=== PATIENT | female | born 1950 | race Caucasian/White ===

== ENCOUNTER → 2017-08-25 08:42 | Outpatient (CLI) | payer MEDICARE, SELFPAY ==
--- NOTE | 2017-08-25 | XR_ITS ---
XR DEXA axial skeleton HISTORY: ITS.REASON: POST MENOPAUSAL ORDERING PHYSICIAN: Curtis Trevino MD PATIENT AGE: 67 years COMPARISON: None FINDINGS: The BMD measured at the Right femoral neck is .868 g/cm squared with a T score of -1.2. This is considered Osteopenic according to the World Health Organization criteria. Fracture risk is moderate. Treatment is advised. The L1-L4 density has a T score of 1.5. The density of the lumbar spine is increased by 2.4% and the density of the hips has decreased by 0.9% compared to the previous exam of 08/23/2016 IMPRESSION: Osteopenia as described above. Moderate fracture risk. Recommend follow-up exam August 2019
--- NOTE | 2017-08-25 08:45 | MM_ITS ---
MM Dig screening mamm BI w/CAD CAD Screening ORDERING PHYSICIAN : Curtis Trevino MD PATIENT AGE: 67 years GENDER: Female COMPARISON: Previous mammograms: August 2016, July 2015, June 2014, INDICATION: 67-year-old.Has been taking female hormones over past year ... Previous stereotactic biopsy right breast. No new complaints. Noncontributory family history.] TECHNIQUE: Standard CC and MLO images were obtained. R2 CAD reviewed. FINDINGS: Minimal fibroglandular elements in both breasts. It however prior films are helpful and supportive stable pattern with no dominant mass nor suspicious calcifications. RIGHT BREAST: No significant new findings 2 Metallic marker clip from previous stereotactic biopsies evident. One is at the deep medial right breast again noted.. Scant residual density here has regressed since 2013.. The other is seen at the deep superior central breast. Unchanged. LEFT BREAST:. No significant new findings . A few small calcifications in the retroareolar region appear stable if not less evident. Follow-up left mammogram 1 year adequate.. Follow-up one year recommended. Stable small constipation retroareolar region. --IMPRESSION: -------- No significant new findings. . Bilateral follow-up in one year recommended and should be encouraged. BI-RADS Category: 2 Benign Finding(s) RECOMMENDED FOLLOW-UP: 1YR - 1 YEAR FOLLOW-UP (A letter has been sent to the patient regarding results of the study.)
== END ==
PROVIDERS: Family Provider Internal Medicine Adolescent Medicine; PCP Obstetrics & Gynecology; Visit Provider Obstetrics & Gynecology
DX: Z12.31 Encounter for screening mammogram for malignant neoplasm of breast (principal); N95.1 Menopausal and female climacteric states; Z78.0 Asymptomatic menopausal state
CPT/HCPCS: 77067; 77080

== ENCOUNTER → 2017-12-29 13:26 | Outpatient (CLI) | payer MEDICARE, SELFPAY ==
--- NOTE | 2017-12-29 13:30 | MR_ITS ---
MR cervical spine wo con, MR 3-d myelogram/MRCP Ordering Physician: Raj Oneil MD Patient Age: 67 years: Female HISTORY: ITS.REASON: CERVICAL NEURALGIA Right-sided neck pain sensation. Correlate sensation symptoms past few months. Teeth pain on right past 2 days Sagittal STIR, T1, T2, axial T1 and T2. On 1.5T Siemens wide bore MRI. 3-D MR myelogram image set obtained & performed on MRI workstation. Additional sagittal thin section T2 weighted dataset obtained from this latter acquisition as well (---76 CPT) COMPARISON :No relevant studies FINDINGS the cervical vertebral bodies are intact. There is reversal of normal cervical curvature through the mid C-spine from C3-C7 with multilevel degenerative disc changes and cervical spondylosis Cranial cervical junction appears satisfactory . C2/3. Disc intact C3/4. Mild just over 2 mm degenerative anterolisthesis of C3 on C4. Degenerative disc space narrowing & bilateral facet hypertrophy contribute to the degenerative listhesis., Diffuse Disc osteophyte complex, more evident to the right with uncovertebral joint hypertrophy to the right. These features indenting the thecal sac and flattening the cervical cord more so to the right.. Resulting mild mild/moderate central canal stenosis with spinal canal measuring~ 8.5 mm at this level. Indentation upon thecal sac and right foraminal encroachment greater than left C4/5Degenerative disc space narrowing and again scant 1.5 mm-2 mm degenerative anterolisthesis of C4 on C5. But again degenerative disc space narrowing and facet hypertrophy evident and contribute to this mild listhesis. Mild diffuse disc/ osteophyte features narrow the spinal canal 8.5 mm, & yields mild/moderate central canal stenosis.. Mild disc protrusion at midline. Mild bilateral foraminal encroachment C5-C6. Again we see marked degenerative disc space narrowing and cervical spondylosis. Scant 1 mm retrolisthesis of C5 on C6. Diffuse Disc/ osteophyte features posteriorly, which narrow the spinal canal 8 mm at this area. With slight flattening the cervical cord. & central canal stenosis.. Bilateral foraminal encroachment most evident to the right C6/7: Again with marked degenerative disc space narrowing. Mild diffuse posterior hypertrophic ridging slightly more evident to the right. Features slightly indents the anterior thecal sac and yield moderate bilateral foraminal encroachment. A prominent ligamentum flavum and posterior elements indents the posterior left aspect of the thecal sac at this level C7/T1. Disc intact. Cord normal. T1-T2 disc intact cord normal. T2/T3 disc intact. A scant 1 mm anterolisthesis T2 on T3. T 3/4 disc unremarkable. Cord normal 3-D MR myelogram image demonstrates a multilevel spinal stenosis which begins at C3/4 imaging continues through C4/5, C5-C6 and diminishes at C6/7. ------ IMPRESSION Pronounced multilevel cervical spondylosis- With long segment Multilevel cervical spinal stenosis from C3/4 through C6/7.... Spinal stenosis at each interval level . Multilevel prominent degenerative disc changes, along with facet hypertrophy, with degenerative listhesis at several levels contribute C5/C6 & C6/7: Mild/moderate Spinal stenosis, with right foraminal encroachment > left at C5/6 and C6/7 C3/4 and C4/5: Degenerative anterolisthesis at C3/4 & C4/5, along with disc/osteophyte features,. These yield mild spinal stenosis these levels & right foraminal encroachment at C3/4 Reversal of normal cervical curvature.
== END ==
PROVIDERS: Family Provider Internal Medicine Adolescent Medicine; PCP Obstetrics & Gynecology; Visit Provider Internal Medicine Adolescent Medicine
DX: M54.12 Radiculopathy, cervical region (principal)
CPT/HCPCS: 72141; 76376

== ENCOUNTER → 2018-04-21 10:00 | Outpatient (CLI) | payer MEDICARE, SELFPAY ==
--- NOTE | 2018-04-21 10:03 | MR_ITS ---
MR lumbar spine wo con, MR 3-d myelogram/MRCP HISTORY: Low back pain with right leg pain and numbness and tingling ITS.REASON: LOW BACK PAIN ORDERING PHYSICIAN: Oscar Rivas PATIENT AGE: 67 years Comparison: None TECHNIQUE: Standard multiplanar multiecho sequences are performed without contrast. 3-D MIP and myelographic images are also rendered and reviewed FINDINGS: There is a transitional segment at the lumbosacral junction which is labeled as S1. Please correlate with lateral radiographs if any intervention is contemplated. The spinal cord ends at the L1-L2 level. L1-L2: Mild degenerative disc disease with minimal bulging disc and mild facet ligamentous hypertrophy with mild bilateral lateral recess and foraminal narrowing. L2-L3: Mild facet and ligamentum flavum hypertrophy. L3-L4: Mild bulging disc along with facet and ligamentum flavum hypertrophy with moderate bilateral lateral recess and foraminal narrowing greater on the left. L4-L5: There is mild anterior subluxation of L4 on L5 of 4 mm with bulging disc along with facet and ligamentum flavum hypertrophy with resultant canal stenosis and moderate bilateral foraminal narrowing greater on the left. Canal stenosis is moderate to severe with the canal measuring 8 mm in the AP plane. L5-S1: Degenerative disc disease with bulging disc along with facet and ligamentum flavum hypertrophy with moderate bilateral lateral recess narrowing and moderate to severe bilateral foraminal narrowing. There are type II endplate changes at this level IMPRESSION: 1. Transitional segment at the lumbosacral junction. This is labeled as S1 . Please correlate with radiographs if any intervention is contemplated 2. Multilevel degenerative disc disease along with facet and ligamentum flavum hypertrophy with bulging discs. Please see above for detailed description at each level 3. L4-L5: There is mild anterior subluxation of L4 on L5 of 4 mm with bulging disc along with facet and ligamentum flavum hypertrophy with resultant canal stenosis and moderate bilateral foraminal narrowing greater on the left. Canal stenosis is moderate to severe with the canal measuring 8 mm in the AP plane. 4. L5-S1: Degenerative disc disease with bulging disc along with facet and ligamentum flavum hypertrophy with moderate bilateral lateral recess narrowing and moderate to severe bilateral foraminal narrowing. There are type II endplate changes at this level
== END ==
PROVIDERS: Family Provider Internal Medicine Adolescent Medicine; PCP Obstetrics & Gynecology; Visit Provider Neurological Surgery
DX: M54.5 Low back pain (principal)
CPT/HCPCS: 72148; 76376

== ENCOUNTER → 2018-10-18 10:27 | Outpatient (CLI) | payer MEDICARE, SELFPAY ==
--- NOTE | 2018-10-18 10:32 | MM_ITS ---
MM Dig screening mamm BI w/CAD CAD Screening COMPARISON: Digital mammograms with CAD and rosas 08/23/2016 08/25/2017 INDICATION: There is no personal or family history of breast cancer TECHNIQUE: Standard CC and MLO images were obtained. R2 CAD reviewed. FINDINGS: Moderate diffuse fibro glandular densities are seen throughout both breasts. There are couple of tiny stable benign-appearing nodular densities right breast. There are benign-appearing calcifications right breast. There is no suspicious lesion and there are no suspicious microcalcifications. IMPRESSION: Fibrofatty parenchyma no suspicious lesion seen BI-RADS Category: 2 Benign Finding(s) RECOMMENDED FOLLOW-UP: 1YR - 1 YEAR FOLLOW-UP (A letter has been sent to the patient regarding results of the study.)
--- NOTE | 2018-10-18 10:32 | XR_ITS ---
XR DEXA axial skeleton HISTORY: ITS.REASON: screening ORDERING PHYSICIAN: Curtis Trevino MD PATIENT AGE: 68 years COMPARISON: 08/25/2017 FINDINGS: The BMD measured at the right femoral neck is 0.896 g/cm squared with a T score of -1.0. This is considered normal according to the World Health Organization criteria. Fracture risk is low. The L1 L4 density has a T score of 1.5 unchanged. The remaining hip density has increased by 2%.. IMPRESSION: Normal bone density with low fracture risk. Suggest follow-up exam October 2020
== END ==
PROVIDERS: PCP Internal Medicine Adolescent Medicine; Visit Provider Obstetrics & Gynecology
DX: Z12.31 Encounter for screening mammogram for malignant neoplasm of breast (principal); Z78.0 Asymptomatic menopausal state
CPT/HCPCS: 77067; 77080

== ENCOUNTER → 2019-11-13 09:37 | Outpatient (CLI) | payer MEDICARE, SELFPAY ==
--- NOTE | 2019-11-13 09:45 | MM_ITS ---
PROCEDURE: MM DIG SCREENING MAMM BI W/CAD Digital Breast Tomosynthesis Included CLINICAL INDICATION: SCREENING There is no personal or family history of breast cancer. Patient is currently on estrogen. There has been a previous biopsy right breast for benign disease. COMPARISON: [facility] DIG MAMM-SCREEN NICOLE W/CAD from 08/23/2016 [facility] MM Dig screening mamm BI w/CAD from 08/25/2017 [facility] MM Dig screening mamm BI w/CAD from 10/18/2018 TECHNIQUE: Standard CC and MLO images and 3D Tomosynthesis was obtained. R2 CAD reviewed. FINDINGS: Mild to moderate diffuse fibroglandular densities are seen in both breasts. There are 2 biopsy clips right breast. There is a stable small nodular benign-appearing density upper inner quadrant right breast. There is no suspicious lesion and no suspicious microcalcifications. IMPRESSION: Fibrofatty parenchyma with no suspicious lesions seen BI-RAD Category: 2 Benign Finding(s) FOLLOW-UP: 1YR 1 Year Follow-up (A letter has been sent to the patient regarding results of the study.) Dictated by: Dr. Homar Archer MD 11/14/2019 17:[address] Homar Archer MD in [place] 11/14/2019 17:45
== END ==
PROVIDERS: PCP Internal Medicine Adolescent Medicine; Visit Provider Internal Medicine Adolescent Medicine
DX: Z12.31 Encounter for screening mammogram for malignant neoplasm of breast (principal)
CPT/HCPCS: 77063; 77067

== ENCOUNTER → 2020-10-02 11:28 | Outpatient (CLI) | payer MEDICARE, SELFPAY ==
[2020-10-02 12:00] LABS: Basophils % 0.9 % (0.1-2.0); Eosinophils # 0.1 K/mm3 (0.0-0.4); Eosinophils % 1.8 % (0.1-12.0); Hemoglobin 12.7 g/dL (12.2-16.2); Lymphocytes # 1.6 K/mm3 (0.7-4.5); Lymphocytes % 32.2 % (10-50); Mean Corpuscular HGB Conc 33.4 g/dL (31.8-35.4); Mean Corpuscular Volume 89.9 fl (81-99); Mean Platelet Volume 8.3 fl (7.4-10.4); Monocytes # 0.4 K/mm3 (0.1-1.0); Monocytes % 8.1 % (1.7-9.3); Neutrophils # 2.9 K/mm3 (1.8-7.8); Neutrophils % 57.1 % (37.0-80.0); Platelet Count 234 K/mm3 (142-424); Red Blood Count 4.23 M/mm3 (4.20-5.40); Red Cell Distribution Width 13.3 % (11.5-17.5)
[2020-10-02 13:17] LABS: Chloride 102 mmol/L (98-107)
[2020-10-02 13:18] LABS: Potassium 4.6 mmoL/L (3.5-5.1); Sodium 138 mmol/L (136-145)
[2020-10-02 13:20] LABS: Alanine Aminotransferase 22 U/L (12-78); Alkaline Phosphatase 79 U/L (38-126); Anion Gap 11.6 mEq/L (5-15); Aspartate Amino Transferase 36 U/L (14-36); Bilirubin,Total 0.8 mg/dl (0.2-1.3); Blood Urea Nitrogen 24 mg/dl (7-17); Carbon Dioxide 29 mmol/L (22.0-30.0); Estimated Glomerular Filt Rate 40 ml/min (>60); GFR (African American) 49 ML/MIN (>60)
[2020-10-02 13:21] LABS: Albumin Level 4.5 g/dl (3.5-5.0); Albumin/Globulin Ratio 1.7 (1.1-1.8); Calcium 10.4 mg/dl (8.4-10.2); Chol/HDL Ratio 2.1 (1-3.5); Cholesterol 177 mg/dl (140-200); Globulin 2.7 g/dL (1.3-3.2); Glucose 105 mg/dl (74-100); HDL Cholesterol 85 mg/dl (40-60); Magnesium 1.7 mg/dl (1.6-2.3); Total Protein,Serum 7.2 g/dl (6.3-8.2); Triglycerides 110 mg/dl (30-150); VLDL Cholesterol 22 mg/dL (0-40)
[2020-10-02 13:32] LABS: Direct LDL Cholesterol 62.46 mg/dL (100-129)
[2020-10-02 13:37] LABS: Free Thyroxine Index 3.2 ug/dL (5.93-13.13); T4 (Thyroxine) 11.9 ug/dl (5.53-11.0); Triiodothryronine (T3) Uptake 27 % (23.5-40.5)
[2020-10-02 13:42] LABS: 25-OH Vitamin D, Total 23.5 ng/mL (30-100)
[2020-10-02 13:51] LABS: Thyroid Stimulating Hormone 2.42 uIU/mL (0.465-4.68)
== END ==
PROVIDERS: Visit Provider Internal Medicine Adolescent Medicine
DX: R00.2 Palpitations (principal); E53.8 Deficiency of other specified B group vitamins; E55.9 Vitamin D deficiency, unspecified; E78.5 Hyperlipidemia, unspecified
CPT/HCPCS: 36415; 80053; 80061; 82306; 83735; 84436; 84443; 84479; 85025

== ENCOUNTER → 2020-10-08 09:31 | Outpatient (CLI) | payer MEDICARE, SELFPAY ==
--- NOTE | 2020-10-08 09:33 | XR_ITS ---
PROCEDURE: XR DEXA AXIAL SKELETON CLINICAL HISTORY: GENERALIZED OSTEOARTHRITIS OF MULTIPLE SITES COMPARISON: CR DEXAAX XR DEXA axial skeleton from 10/18/2018 FINDINGS: The right hip BMD is 0.838 grams/centimeter square with a T-score of -1.1. The left hip BMD is 0.829 grams/centimeters squared with a T-score of -0.9. The lumbar spine BMD is 1.164 grams/cm2 with a T-score of 1.1. IMPRESSION: This patient is considered osteopenic according to the World Health Organization criteria. Bone density is between 10 and 25 percent below young normal. Fracture risk is moderate. Treatment is advised. Based on these results a follow-up exam is recommended in 2 year. Dictated by: Danna Quevedo 10/08/2020 15:01 Danna Quevedo in [place] 10/08/2020 15:01
== END ==
PROVIDERS: PCP Internal Medicine Adolescent Medicine; Visit Provider Internal Medicine Adolescent Medicine
DX: M85.89 Other specified disorders of bone density and structure, multiple sites (principal); I48.92 Unspecified atrial flutter
CPT/HCPCS: 77080; 93225; 93226

== ENCOUNTER 2020-11-24 16:17 | Emergency (ER) | payer MEDICARE, SELFPAY ==
[2020-11-24 16:25] VITALS: PULSE 70; RESP 16; TEMP 36.9; O2SAT 100; BMI 30.9
[2020-11-24 16:42] VITALS: BP 186/79; PULSE 68; RESP 18; TEMP 36.6; O2SAT 100; BMI 30.7
--- NOTE | 2020-11-24 16:48 | XR_ITS ---
PROCEDURE INFORMATION: Exam: XR Thoracic Spine Exam date and time: 11/24/2020 4:48 PM Age: 70 years old Clinical indication: Injury or trauma; Fall; Blunt trauma (contusions or hematomas) TECHNIQUE: Imaging protocol: XR of the thoracic spine. Views: 2 views. COMPARISON: No relevant prior studies available. FINDINGS: Bones/joints: Levoscoliosis of the thoracolumbar junction region. T11-12 degenerative disc space narrowing and osteophyte formation. No acute fracture. Soft tissues: Unremarkable. Intraperitoneal space: Cholecystectomy clips within the right upper abdomen. IMPRESSION: No acute fracture.
--- NOTE | 2020-11-24 16:48 | XR_ITS ---
PROCEDURE INFORMATION: Exam: XR Right Shoulder Exam date and time: 11/24/2020 4:48 PM Age: 70 years old Clinical indication: Injury or trauma; Fall; Blunt trauma (contusions or hematomas); Shoulder; Right TECHNIQUE: Imaging protocol: XR Right shoulder. Views: 2 or more views. COMPARISON: No relevant prior studies available. FINDINGS: Bones/joints: Normal. Soft tissues: Normal. IMPRESSION: No acute findings.
--- NOTE | 2020-11-24 16:48 | XR_ITS ---
PROCEDURE INFORMATION: Exam: XR Cervical Spine Exam date and time: 11/24/2020 4:48 PM Age: 70 years old Clinical indication: Injury or trauma; Fall; Blunt trauma TECHNIQUE: Imaging protocol: XR of the cervical spine. Views: 2 or 3 views. COMPARISON: [facility] MR cervical spine wo con 12/29/2017 1:44 PM FINDINGS: Bones/joints: Grade 1 degenerative anterolisthesis of C3 on C4. Grade 1 degenerative retrolisthesis of C5 on C6 and C6 on C7. Moderate degenerative disc disease at the C4-C5 through C6-C7 levels, manifest by disc space narrowing and osteophyte formation. Moderate bilateral facet arthropathy and uncovertebral arthropathy from C3-C4 through C6-C7 levels. No acute fracture. Soft tissues: Unremarkable. IMPRESSION: 1. No acute fracture. 2. Multilevel cervical spine spondylosis as described above.
--- NOTE | 2020-11-24 17:34 | HMH.EDUTC ---
[facility] [place] Impression: Shoulder separation Fall Qualifiers: Encounter type: initial encounter Qualified Code(s): W19.XXXA - Unspecified fall, initial encounter Right shoulder pain Qualifiers: Chronicity: acute Qualified Code(s): M25.511 - Pain in right shoulder Disposition: Home, Self-Care Condition on Discharge: Good Instructions: Shoulder Sprain, DI for AC Joint Separation, AC Joint Separation Additional Instructions: Rest the extremity, apply ice for 15 minutes as tolerated three or four times per day, Elevate the extremity as tolerated while you are resting. Take ibuprofen for pain. I sent in a prescription to your pharmacy. Follow up with Dr. Parker (orthopedics). Sometimes there can be fractures that don't show up well on the first set of x-rays. So, you should follow up if you continue to have symptoms. I put in a referral but you need to call her office and schedule an appointment. Follow up with your regular doctor. GO TO THE ER FOR ANY WORSENING SYMPTOMS Prescriptions: Ibuprofen [Ibuprofen 600mg Tablet] 600 mg PO Q6HP PRN #30 tab PRN Reason: Mild Pain Transmission Status: Received by [facility] Cyclobenzaprine HCl [Flexeril 10mg tablet] 10 mg PO BIDP PRN 30 Days #90 tab PRN Reason: Muscle Spasm Transmission Status: Received by [facility] Referrals: Raj Oneil MD [Primary Care Provider] - Stacie Parker MD [Physician] - Time of Disposition: 17:57 Medical Decision Making - Medical Records Medical records reviewed: No: I reviewed the patient's medical records. - Dayday Inquiry Pt receiving controlled substance: No Vital Signs: 11/24/20 16:25 11/24/20 16:42 11/24/20 18:07 Temperature 98.4 F 97.9 F 98.3 F Temperature Source Oral Tympanic Pulse Rate 72 Pulse Rate [Right] 70 68 Respiratory Rate 16 18 16 Blood Pressure 172/81 H Blood Pressure [Right Arm] 186/79 H Blood Pressure Mean [Right Arm] 114 02 Sat by Pulse Oximetry 100 100 Oxygen Delivery Method Room Air Room Air Orders (Tests/Meds): ED MEDICATIONS Discontinued Medications Generic Name Dose Route Start Last Admin Trade Name Freq PRN Reason Stop Dose Admin Ketorolac Tromethamine 60 mg 11/24/20 17:34 11/24/20 17:42 Ketorolac 60mg/2ml Vial IM 11/24/20 17:35 60 mg ONCE ONE Administration - Radiology Data #1 Image(s): Shoulder Image Reviewed: Yes I reviewed the patient's radiology image, Yes I have reviewed radiologist's interpretation Preliminary Findings: No Fracture Seen PROCEDURE INFORMATION: Exam: XR Right Shoulder Exam date and time: 11/24/2020 4:48 PM Age: 70 years old Clinical indication: Injury or trauma; Fall; Blunt trauma (contusions or hematomas); Shoulder; Right TECHNIQUE: Imaging protocol: XR Right shoulder. Views: 2 or more views. COMPARISON: No relevant prior studies available. FINDINGS: Bones/joints: Normal. Soft tissues: Normal. IMPRESSION: No acute findings. #2 Image(s): C-Spine Image Reviewed: Yes I reviewed the patient's radiology image, Yes I have reviewed radiologist's interpretation Preliminary Findings: Abnormal, No Fracture Seen PROCEDURE INFORMATION: Exam: XR Cervical Spine Exam date and time: 11/24/2020 4:48 PM Age: 70 years old Clinical indication: Injury or trauma; Fall; Blunt trauma TECHNIQUE: Imaging protocol: XR of the cervical spine. Views: 2 or 3 views. COMPARISON: [facility] MR cervical spine wo con 12/29/2017 1:44 PM FINDINGS: Bones/joints: Grade 1 degenerative anterolisthesis of C3 on C4. Grade 1 degenerative retrolisthesis of C5 on C6 and C6 on C7. Moderate degenerative disc disease at the C4-C5 through C6-C7 levels, manifest by disc space narrowing and osteophyte formation. Moderate bilateral facet arthropathy and uncovertebral arthropathy from C3-C4 through C6-C7 l
[2020-11-24 18:07] VITALS: BP 172/81; PULSE 72; RESP 16; TEMP 36.8
--- NOTE | 2020-11-24 18:10 | PC.NURSE ---
pulled before the order was in. [id number] L DELTOID
== END 2020-11-24 18:07 | disposition home or self-care (01) ==
LOC: ER 16:26 → UTC 16:28
PROVIDERS: Emergency Provider Nurse Practitioner Family; PCP Internal Medicine Adolescent Medicine
DX: S43.001A Unspecified subluxation of right shoulder joint, initial encounter (principal); W17.89XA Other fall from one level to another, initial encounter; Y92.019 Unspecified place in single-family (private) house as the place of occurrence of the external cause; I10 Essential (primary) hypertension; K21.9 Gastro-esophageal reflux disease without esophagitis; E78.5 Hyperlipidemia, unspecified; M85.89 Other specified disorders of bone density and structure, multiple sites
CPT/HCPCS: G0463; 72040; 72070; 73030; 99202

== ENCOUNTER → 2021-01-27 10:11 | Outpatient (CLI) | payer MEDICARE, SELFPAY ==
--- NOTE | 2021-01-27 10:13 | MM_ITS ---
PROCEDURE: MM DIG SCREENING MAMM BI W/CAD Digital Breast Tomosynthesis Included CLINICAL INDICATION: SCREENING There is no personal or family history of breast cancer. Patient currently is on estrogen. COMPARISON: MG [facility] MM Dig screening mamm BI w/CAD from 08/25/2017 MG [facility] MM Dig screening mamm BI w/CAD from 10/18/2018 MG MM DIG SCREENING MAMM BI W/CAD from 11/13/2019 TECHNIQUE: Standard CC and MLO images and 3D Tomosynthesis was obtained. R2 CAD reviewed. FINDINGS: Moderate scattered fibroglandular densities are seen throughout both breasts and findings are bilateral symmetrical. There is a biopsy clip right breast. There are couple of benign-appearing microcalcifications in each breast. There is no suspicious lesion and no suspicious microcalcifications. IMPRESSION: Fibrofatty parenchyma with no suspicious lesions seen BI-RAD Category: 2 Benign Finding(s) FOLLOW-UP: 1YR 1 Year Follow-up (A letter has been sent to the patient regarding results of the study.) Dictated by: Dr. Homar Archer MD 01/28/2021 10:08 Dr. Homar Archer MD in [place] 01/28/2021 10:08
== END ==
PROVIDERS: PCP Internal Medicine Adolescent Medicine; Visit Provider Internal Medicine Adolescent Medicine
DX: Z12.31 Encounter for screening mammogram for malignant neoplasm of breast (principal)
CPT/HCPCS: 77063; 77067

== ENCOUNTER → 2021-03-18 11:05 | Outpatient (CLI) | payer MEDICARE, SELFPAY ==
[2021-03-18 12:35] LABS: Alanine Aminotransferase 20 U/L (12-78); Albumin Level 4.3 g/dl (3.5-5.0); Albumin/Globulin Ratio 1.5 (1.1-1.8); Alkaline Phosphatase 67 U/L (38-126); Anion Gap 14.6 mEq/L (5-15); Aspartate Amino Transferase 31 U/L (14-36); Bilirubin,Total 0.6 mg/dl (0.2-1.3); Blood Urea Nitrogen 19 mg/dl (7-17); Carbon Dioxide 29 mmol/L (22.0-30.0); Chloride 100 mmol/L (98-107); Estimated Glomerular Filt Rate 40 ml/min (>60); GFR (African American) 49 ML/MIN (>60); Globulin 2.9 g/dL (1.3-3.2); Glucose 104 mg/dl (74-100); Potassium 4.6 mmoL/L (3.5-5.1); Sodium 139 mmol/L (136-145); Total Protein,Serum 7.2 g/dl (6.3-8.2)
[2021-03-18 12:51] LABS: T4 (Thyroxine) 11.6 ug/dl (5.53-11.0); Triiodothryronine (T3) Uptake 26 % (23.5-40.5)
[2021-03-18 13:05] LABS: Thyroid Stimulating Hormone 2.09 uIU/mL (0.465-4.68)
== END ==
PROVIDERS: Visit Provider Internal Medicine Adolescent Medicine
DX: E05.90 Thyrotoxicosis, unspecified without thyrotoxic crisis or storm (principal); I10 Essential (primary) hypertension
CPT/HCPCS: 36415; 80053; 84436; 84443; 84479

== ENCOUNTER → 2022-03-29 10:48 | Outpatient (CLI) | payer MEDICARE, SELFPAY ==
--- NOTE | 2022-03-29 10:52 | MM_ITS ---
PROCEDURE INFORMATION: Exam: MG Bilateral Screening 3D Mammography Exam date and time: 03/29/2022 10:46 AM Age: 71 years old Clinical indication: Screening examination. History of benign right biopsies. No family history of breast cancer. TECHNIQUE: Imaging protocol: Bilateral Screening tomosynthesis and 2D mammography including computer-aided detection (CAD) when performed. COMPARISON: 1. MG MM DIG SCREENING MAMM BI W/CAD 01/27/2021 10:16 AM 2. MG MM DIG SCREENING MAMM BI W/CAD 11/13/2019 9:50 AM 3. MG [facility] MM Dig screening mamm BI w/CAD 10/18/2018 10:53 AM 4. MG [facility] MM Dig screening mamm BI w/CAD 08/25/2017 8:55 AM FINDINGS: MAMMOGRAPHY: Breast composition: There are scattered areas of fibroglandular density. Mass: No suspicious mass. Architectural distortion: None. Calcifications: No suspicious calcifications. Asymmetric density: None. Skin thickening: None. Axillary adenopathy: None. Other findings: 2 right biopsy clips.Assessment: BI-RADS Category 2: Benign IMPRESSION: No mammographic evidence of malignancy. Annual screening is recommended unless otherwise clinically indicated. ASSESSMENT: BI-RADS Category 1: Negative
== END ==
PROVIDERS: PCP Internal Medicine Adolescent Medicine; Visit Provider Internal Medicine Adolescent Medicine
DX: Z12.31 Encounter for screening mammogram for malignant neoplasm of breast (principal)
CPT/HCPCS: 77063; 77067

== ENCOUNTER 2022-07-09 14:28 | Emergency (ER) | payer MEDICARE, SELFPAY ==
[2022-07-09 14:28] VITALS: BP 192/95; PULSE 76; RESP 18; TEMP 36.7; O2SAT 96; BMI 30.5
[2022-07-09 14:37] VITALS: BMI 30.5
--- NOTE | 2022-07-09 14:37 | PC.NURSE ---
PT TO CT
--- NOTE | 2022-07-09 14:38 | CT_ITS ---
FINAL REPORT CLINICAL HISTORY: SLURRED SPEECH STROKE PROTOCOL FINDINGS: Axial images of the head were obtained without contrast. Coronal reformatted images were also obtained. This study was performed with techniques to keep radiation doses as low as reasonably achievable (ALARA). Individualized dose reduction techniques using automated exposure control or adjustment of mA and/or kV according to the patient's size were employed. There is generalized age-appropriate atrophy. Periventricular low-attenuation areas are seen consistent with mild chronic ischemic changes. There is no evidence of intracranial hemorrhage or mass. There is no evidence of acute infarct. There is no evidence of shift of the midline structures. No skull abnormality is seen on the bone window images. IMPRESSION: Atrophy and mild periventricular chronic ischemic changes. No acute intracranial abnormality identified. Reviewed, Interpreted and Dictated by Fernandez Drew III, MD Transcribed by Saritha Mccrary Authenticated and [facility]
[2022-07-09 14:40] LABS: POC Glucose,Bedside 119 (70-110)
--- NOTE | 2022-07-09 14:45 | PC.NURSE ---
PT RETURNED FROM CT
[2022-07-09 15:00] LABS: Chloride 104 mmol/L (98-107); Potassium 3.9 mmoL/L (3.5-5.1); Sodium 140 mmol/L (136-145)
[2022-07-09 15:02] LABS: Alanine Aminotransferase 22 U/L (12-78); Aspartate Amino Transferase 34 U/L (14-36); Blood Urea Nitrogen 20 mg/dl (7-17); Creatinine Clearance Estimated 51 mL/min (50-200); Estimated Glomerular Filt Rate 37 ml/min (>60); GFR (African American) 45 ML/MIN (>60)
[2022-07-09 15:03] LABS: Albumin Level 4.4 g/dl (3.5-5.0); Albumin/Globulin Ratio 1.8 (1.1-1.8); Alkaline Phosphatase 57 U/L (38-126); Anion Gap 12.9 mEq/L (5-15); Bilirubin,Total 0.6 mg/dl (0.2-1.3); Calcium 9.3 mg/dl (8.4-10.2); Carbon Dioxide 27 mmol/L (22.0-30.0); Globulin 2.5 g/dL (1.3-3.2); Glucose 127 mg/dl (74-100); Total Protein,Serum 6.9 g/dl (6.3-8.2)
[2022-07-09 15:17] LABS: Troponin I < 0.01 ng/ml (0.00-0.034)
--- NOTE | 2022-07-09 15:45 | HMH.EDGENADL ---
Discharge Plan Disposition Patient Disposition: Home, Self-Care Condition: Good Prescriptions Prescriptions: No Action calcium carbonate 600 mg calcium (1,500 mg) tablet 600 mg PO BID pantoprazole 40 mg tablet,delayed release (DR/EC) 40 mg PO DAILY simvastatin 10 mg tablet 10 mg PO QHS naproxen sodium [Aleve] 220 mg capsule 220 mg PO BID PRN cyanocobalamin (vitamin B-12) [B-12 DOTS] 500 mcg tablet 1,000 mcg PO DAILY xbpz-ajggow-qhncrxwt-D3-C-Mn 500-400-667 mg-mg-unit capsule 1 cap PO BID losartan-hydrochlorothiazide [Hyzaar] 100-25 mg tablet 1 tab PO DAILY Bystolic 5 mg tablet 5 mg PO DAILY potassium chloride 20 mEq tablet extended release 20 meq PO BID celecoxib [Celebrex] 200 mg capsule 200 mg PO BID estradiol 1 mg tablet 1 mg PO DAILY Qty: 90 1RF Rx Instructions: needs an appt. by the end of Jun cyclobenzaprine 10 MG tablet 10 mg PO BIDP PRN (Reason: Muscle Spasm) 30 Days Qty: 90 0RF ibuprofen 600 MG tablet 600 mg PO Q6HP PRN (Reason: Mild Pain) Qty: 30 0RF Activity Restrictions/Add. Instructions Additional Instructions/Restrictions: Follow-up with your family doctor regarding this visit to the emergency department as soon as you are able to establish care and ensure improvement in symptoms. If you have any other concerning signs or symptoms, return to the ED for further evaluation, or your primary care provider. Make sure to drink plenty of water and stay as hydrated as possible. Clinical Impressions Clinical Impression: Dehydration, Disorientation Discharge ED Provider: Natan Ch General Adult HPI General Chief complaint: Neuro Symptoms/Deficit Stated complaint: STROKE LIKE SYMPTOMS Time Seen by Provider: 07/09/22 15:06 Mode of Arrival: Ambulatory Limitations: No Limitations Description of Symptoms (Recalled from ER Triage Doc. by RN): FAMILY REPORTS PT WAS IN BED LONGER THAN NORMAL. PT WAS DISORIENTED, DOING TASKS ODDLY AND SLURRED SPEECH. LAST KNOWN NORMAL ABOUT 1000 History of Present Illness HPI narrative: This is a 72-year-old female with history of hypertension, hyperlipidemia, tachycardia who is presenting with altered mental status, generalized fatigue. This is been going on for the past 2 days, worse today. Usually patient is up and ready to go for the day around 8 AM, patient slept until around noon today. Has been confused intermittently and having memory lapses, which family and patient both state or normal for her. Patient denies falls, weakness on one side of her body or the other, facial droop, but patient's family states that when she was confused today on 07/09, she also seemed to have some slurred speech. This has since resolved. Patient denies fevers, chills, nausea, vomiting, chest pain, shortness of breath, abdominal pain, upper extremity symptoms, lower extremity symptoms, dysuria, hematuria, frequency, recent travel, or any other concerning recent history. Related Data Home Medications Medication Instructions Recorded Confirmed calcium carbonate 600 mg calcium 600 mg PO BID 06/26/18 06/26/18 (1,500 mg) tablet celecoxib 200 mg capsule (Celebrex) 200 mg PO BID 06/26/18 06/26/18 cyanocobalamin (vitamin B-12) 500 1,000 mcg PO DAILY 06/26/18 06/26/18 mcg tablet (B-12 DOTS) glucosamine 500 1 cap PO BID 06/26/18 06/26/18 bk-lpzifeyhb-uqbmwnbr comp 400 mg-D3 667 unit-C-Mn cap losartan 100 1 tab PO DAILY 06/26/18 06/26/18 mg-hydrochlorothiazide 25 mg tablet (Hyzaar) naproxen sodium 220 mg capsule 220 mg PO BID PRN 06/26/18 06/26/18 (Aleve) nebivolol 5 mg tablet (Bystolic) 5 mg PO DAILY 06/26/18 06/26/18 pantoprazole 40 mg tablet,delayed 40 mg PO DAILY 06/26/18 06/26/18 release potassium chloride 20 mEq 20 meq PO BID 06/26/18 06/26/18 tablet,extended release simvastatin 10 mg tablet 10 mg PO QHS 06/26/18 06/26/18 Previous Rx's Medication Instructions Recorded estr
--- NOTE | 2022-07-09 15:47 | XR_ITS ---
PROCEDURE INFORMATION: Exam: XR Chest Exam date and time: 07/09/2022 4:10 PM Age: 72 years old Clinical indication: Other: AMS; Additional info: AMS, weakness TECHNIQUE: Imaging protocol: Radiologic exam of the chest. Views: 1 view. COMPARISON: CR XR THORACIC SPINE 2V 11/24/2020 4:57 PM FINDINGS: Lungs: Unremarkable. No consolidation. Pleural spaces: Unremarkable. No pleural effusion. No pneumothorax. Heart/Mediastinum: Unremarkable. No cardiomegaly. Bones/joints: Unremarkable. IMPRESSION: No acute findings.
[2022-07-09 16:43] LABS: Microscopic, Urine URINE MICROSCOPIC (MICROSCOPIC)
[2022-07-09 16:45] LABS: Appearance,Urine CLEAR (Clear); Bilirubin,Urine Negative (Negative); Blood, Urine TRACE-I (Negative); Color,Urine YELLOW (Yellow); Glucose,Urine (UA) Negative (Negative); Ketones,Urine Negative (Negative); Leukocyte Esterase,Urine TRACE (Negative); Nitrate,Urine Negative (Negative); PH,Urine 5.5 (5.0-8.5); Protein,Urine Negative (Negative); Specific Gravity, Urine 1.015 (1.005-1.030); Urobilinogen,Urine 0.2 EU/dl (0.2)
[2022-07-09 17:10] LABS: RBC,Urine Occasional #/hpf (0-3); WBC,Urine Occasional #/hpf (0-3)
--- NOTE | 2022-07-09 17:20 | PC.NURSE ---
PT ASSISTED TO BR
--- NOTE | 2022-07-09 17:24 | PC.NURSE ---
PT UPDATED ON POC AT THIS TIME. NO NEEDS VOICED
[2022-07-09 18:06] LABS: Basophils # 0.1 K/mm3 (0-0.2); Basophils % 1.3 % (0.1-2.0); Eosinophils # 0.1 K/mm3 (0.0-0.4); Eosinophils % 1.6 % (0.1-12.0); Hematocrit 38.7 % (37.0-47.0); Hemoglobin 12.9 g/dL (12.2-16.2); Lymphocytes # 2.1 K/mm3 (0.7-4.5); Lymphocytes % 37.1 % (10-50); Mean Corpuscular HGB Conc 33.4 g/dL (31.8-35.4); Mean Corpuscular Volume 92.6 fl (81-99); Mean Platelet Volume 10.5 fl (7.4-10.4); Monocytes # 0.5 K/mm3 (0.1-1.0); Monocytes % 9.1 % (1.7-9.3); Neutrophils # 2.9 K/mm3 (1.8-7.8); Neutrophils % 50.9 % (37.0-80.0); Platelet Count 255 K/mm3 (142-424); Red Blood Count 4.18 M/mm3 (4.20-5.40); Red Cell Distribution Width 13.3 % (11.5-17.5); White Blood Count 5.6 K/mm3 (4.8-10.8)
[2022-07-09 19:00] VITALS: BP 173/80; PULSE 80; RESP 18; TEMP 36.8; O2SAT 98
[2022-07-09 19:24] LABS: Troponin I < 0.01 ng/ml (0.00-0.034)
== END 2022-07-09 19:00 | disposition home or self-care (01) ==
PROVIDERS: Emergency Provider Emergency Medicine; PCP Internal Medicine Adolescent Medicine
DX: R41.82 Altered mental status, unspecified (principal); E86.0 Dehydration; R47.81 Slurred speech; I10 Essential (primary) hypertension; E78.5 Hyperlipidemia, unspecified; R00.0 Tachycardia, unspecified; R53.83 Other fatigue
CPT/HCPCS: 36415; 70450; 71045; 80053; 81001; 82962; 84484; 85025; 96360; 99285

== ENCOUNTER → 2023-05-16 07:54 | Outpatient (CLI) | payer MEDICARE, SELFPAY ==
--- NOTE | 2023-05-16 07:58 | MM_ITS ---
PROCEDURE INFORMATION: Exam: MG Bilateral Screening 3D Mammography Exam date and time: 05/16/2023 7:55 AM Age: 72 years old Clinical indication: Screening mammogram. No personal or family history of breast cancer TECHNIQUE: Imaging protocol: Bilateral Screening tomosynthesis and 2D mammography including computer-aided detection (CAD) when performed. COMPARISON: 1. MG MM DIG SCREENING MAMM BI W/CAD 03/29/2022 10:46 AM 2. MG MM DIG SCREENING MAMM BI W/CAD 01/27/2021 10:16 AM 3. MG MM DIG SCREENING MAMM BI W/CAD 11/13/2019 9:50 AM 4. MG SCBI MM Dig screening mamm BI w/CAD 10/18/2018 10:53 AM FINDINGS: MAMMOGRAPHY: Breast composition: There are scattered areas of fibroglandular density. Mass: None. Architectural distortion: No new or suspicious architectural distortion. Calcifications: No new or suspicious calcifications are present Asymmetric density: No new or suspicious asymmetric density is present Skin thickening: None. Axillary adenopathy: None. IMPRESSION: No mammographic evidence of malignancy. Recommend annual screening mammography unless otherwise clinically indicated. ASSESSMENT: BI-RADS category 1: Negative
== END ==
PROVIDERS: PCP Internal Medicine Adolescent Medicine; Visit Provider Internal Medicine Adolescent Medicine
DX: Z12.31 Encounter for screening mammogram for malignant neoplasm of breast (principal)
CPT/HCPCS: 77063; 77067

== ENCOUNTER 2023-11-09 08:55 | Outpatient (CLI) | payer MEDICARE, SELFPAY ==
--- NOTE | 2023-11-09 09:00 | XR_ITS ---
FINAL REPORT TECHNIQUE: Bone mineral density was calculated of the lumbar spine and hip. CLINICAL HISTORY: .POST MENOPAUSAL COMPARISON: 10/08/2020 FINDINGS: Using L1-4, the bone mineral density of the spine is 1.255 g/cm2, corresponding to T-score of 1.9. Using the left hip, the bone mineral density of the femoral neck is 0.809 g/cm2, corresponding to a T-score of -1.1. Using the right hip, the bone mineral density of the femoral neck is 0.900 g/cm?, corresponding to a T-score of -0.1. NOTE: T-score: Standard deviation compared with peak bone mass of young adult mean. *Following the recommendations of the International Society of Bone densitometry, classification of hip BMD is based on the lower of two T-scores; total hip or femoral neck. IMPRESSION: Normal bone density right femoral neck and lumbar spine. Minimal osteopenia left femoral neck. Reviewed, Interpreted and Dictated by Audra Peres MD Transcribed by Oly Martinez Authenticated and [facility]
== END 2023-11-09 23:59 | disposition home or self-care (01) ==
LOC: RAD 08:56
PROVIDERS: PCP Internal Medicine Adolescent Medicine; Visit Provider Internal Medicine Adolescent Medicine
DX: M85.869 Other specified disorders of bone density and structure, unspecified lower leg (principal); Z78.0 Asymptomatic menopausal state
CPT/HCPCS: 77080

== ENCOUNTER 2024-05-17 10:18 | Outpatient (CLI) | payer MEDICARE, SELFPAY ==
--- NOTE | 2024-05-17 10:21 | MM_ITS ---
PROCEDURE INFORMATION: Exam: MG Bilateral Screening 3D Mammography Exam date and time: 05/17/2024 10:11 AM Age: 73 years old Clinical indication: Screening examination TECHNIQUE: Imaging protocol: Bilateral Screening tomosynthesis and 2D mammography including computer-aided detection (CAD) when performed. COMPARISON: 1. MG MM DIG SCREENING MAMM BI W/CAD 05/16/2023 7:55 AM 2. MG MM DIG SCREENING MAMM BI W/CAD 03/29/2022 10:46 AM FINDINGS: MAMMOGRAPHY: Breast composition: There are scattered areas of fibroglandular density. Mass: None. Architectural distortion: None. Calcifications: No suspicious calcifications. Asymmetric density: None. Skin thickening: None. Axillary adenopathy: None. IMPRESSION: No mammographic evidence of malignancy. Annual screening is recommended unless otherwise clinically indicated. ASSESSMENT: BI-RADS Category 1: Negative.
== END 2024-05-17 23:59 | disposition home or self-care (01) ==
LOC: RAD 10:18
PROVIDERS: PCP Internal Medicine Adolescent Medicine; Visit Provider Internal Medicine Adolescent Medicine
DX: Z12.31 Encounter for screening mammogram for malignant neoplasm of breast (principal)
CPT/HCPCS: 77063; 77067

== ENCOUNTER 2024-11-25 12:41 | Emergency (ER) | payer MEDICARE, SELFPAY ==
[2024-11-25 13:18] VITALS: BP 150/76; PULSE 71; RESP 18; TEMP 36.8; O2SAT 98; BMI 26.1
--- OUTSIDE RECORDS SUMMARY | 2024-11-25 13:18 | XMS_ITS | Data Portability ---
Author Organization [facility] DONNA Person ASHUELOT CLOSED Address [address] [place] [address] Care Team Providers Care Bottom Scrubber Name Role Phone CHANDNI SANABRIA Primary Care Provider [phone] Assessment Encounter Date Assessment Date Assessment LastModified by Organization Details LastModified Time 03/30/2018 03/30/2018 Mrs. 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 She is not myelopathic on examination, nor describes difficulty with balance or fine motor. I recommend managing this conservatively at this time. Surgical intervention would involve a C3-C7 anterior cervical discectomy and fusion, with risks. I carefully reviewed her cervical MRI and the sagittal T2 imaging does show her brainstem. I do not see any mass lesion to account for the right facial numbness. She may have the early beginnings of a trigeminal neuralgia, but without the significant pain. She understands that if this involves the pain that I would see her back to discuss options. I'm going to have her get standing flexion-extension lumbar x-rays on her way out today. I will call her with these results. I would also be happy to review her lumbar MRI if she will send it to me. She understands that she can call our office at any time with questions or concerns. [email or web address] Not available 03/30/2018 09:49:37 Plan of Treatment Reminders Order Date Submit Date Provider Last Modified By Organization Details Last Modified Time Details Appointments None record ed. Lab None record ed. Referral None record ed. Procedures None record ed. Surgeries None record ed. Imaging None record ed. Medication Orders None record ed. Patient TargetsNo targets recorded. Patient InstructionsNo instructions recorded. Reason for Referral None Reported. Results Created Date Observation Date Name Description Value Unit Range Abnormal Flag Note LastModifiedBy Organization Detail LastModifiedTime 03/30/20 18 03/30/2018 XR, lumbo sacra l spine , 2 or 3 view, bendi ng only [facility] [address] [facility] [place] [place] [address] Rene villanueva Name: MANUEL villanueva : 1949 Patialine t 01 Orderi ng Provid er: FÁTIMA Ricardo TAYA EXAM DATE: 2017 EXAM: XR LUMBAR SPINE FLEX/E XT ONLY CLINIC AL INFORM ATION: Back pain. IMAGES PROVID ED: Latera l views of the lumbar spine in flexio n and extens ion. COMPAR RENALDO: None. FINDIN GS: Verteb ral body height s are normal . L3-S1 disc space reduct ion is seen with anteri or and latera l osteop hytes. There is grade 1 raymond listhe sis of L3 over L4. It measur es 9 mm in flexio n and 7 mm in extens ion. Degene rative change s are seen in the facet joints . No radiog raphic eviden ce of injury is noted. IMPRES JORGE: Degene rative change s of the lumbar spine. Mild instab ility at L3-L4 level. Interp reted By: Yrn Douglass MD Electr onical ly Signed By: Yrn Douglass MD on 018 1:46 PM [facility] Radiology [facility] [address] [facility], [place], [address], 04/17/2018 09:47:47 03/31/20 18 12/29/2017 MRI, cervi marjan spine , w/o contr ast No observ ation record ed. ewiner Not Available 2017 13:56:10 04/24/20 18 04/21/2018 MRI, lumba r spine , w/o contr ast No observ ation record ed. [facility] [address], [place], [address], 05/19/2018 10:28:55 04/24/20 18 04/21/2018 MRI, lumba r spine , w/o contr ast No observ ation record ed. [facility] [address] [place], [id number], 05/19/2018 10:28:55 Result Notes None recorded. Procedures Surgical History Date Name Laterality Status Provider Name and Address Organization Details Recorded Time Other completed [facility] 03/30/2018 09:34:28 Other completed [facility] 03/30/2018 09:34:46 Cholecystectomy completed [facility] 03/30/2018 09:34:57 Imaging Results Imaging Date Name Status LastModified by Organiz ation Details LastModified Time 03/30/2018 XR, lumbosacral spine, 2 or 3 view, bending only completed [facility] [address] [place], [address], 04/17/2018 09:47:47 12/29/2017 MRI, cervical spine, w/o contrast completed [facility] Information not available 03/31/2018 13:56:10 04/21/2018 MRI, lumbar spine, w/o contrast completed [address], [place], [address], 05/19/2018 10:28:55 04/21/2018 MRI, lumbar spine, w/o contrast completed [facility] [address] [place], [id number], 05/19/2018 10:28:55 Procedure Notes None recorded. Medical Equipment None Reported. Allergies No known drug allergies Medications Name Sig Start Date Stop Date Status Note LastModified by Organization Details LastModified Time calcium carbonate antacid regu active Not Available Not Available Not Available aspirin low dose 81mg ec active Not Available Not Available Not Available vitamin b12 active Not Available Not A vailable Not Available calcium citrate vitamin d active Not Available Not Available No t Available naproxen sodium - 100 count active Not Available Not Available Not Available atorvastatin 40 mg tablet active Not Available Not Available Not Available fluconazole 150 mg tablet active Not Available Not Availabl e Not Available prednisone 20 mg tablet active Not Available Not Available No t Available simvastatin 10 mg tablet active Not Available Not Available No t Available bisoprolol fumarate 5 mg tablet active Not Available Not Available Not Available losartan 100 mg-hydrochloro thiazide 25 mg tablet active Not Available Not Available Not Available amoxicillin 875 mg tablet active Not Available Not Availabl e Not Available potassium chloride ER 20 mEq tablet,extende d release(part/c ryst) active Not Available Not Available Not Available estradiol 1 mg tablet active Not Available Not Available Not Available pantoprazole 40 mg tablet,delayed release active Not Available Not Available Not Available cefdinir 300 mg capsule active Not Available Not Available N ot Available fluticasone propionate 50 mcg/actuation nasal spray,suspensi on active Not Available Not Available Not Available Vitals Date Recorded Body height Body mass index (BMI) Body weight Systolic blood pressure Diastolic blood pressure Provider Name and Address Organization Details Last Updated DateTime 03/30/2018 190.5 cm 26.2 kg/m2 08695.4 g 126 mm[Hg] 82 mm[Hg] Lillygeeta [facility] 8 09:36:15 Social History Question Answer Notes LastModified by Organizat ion Details LastModified Time Tobacco Smoking Status Never Sm[facility] 03/30/2018 09:30:58 What Was The Date Of Your Most Recent Tobacco Screening? 03/30/2018 Information n ot available 08/28/2019 Sex: Unknown Functional Status None recorded. Mental Status None recorded. Family History Relationship Description Onset Age of this Age Resolved Age Notes LastModified by Organization Details LastModified Time Unspecified Relation Diabetes mellitus [email or web address] Not available 03/30 09:33:48 Unspecified Relation Cerebrovascu lar accident [email or web address] Not available 09:34:07 Medical History Condition Response Arthritis Y Hypertension Y Gynecological HistoryNo gynecological history recorded. Obstetrics History GPAL:G 0 P 0 0 0 0 Past Encounters Encounter ID Performer Location Encounter Start Date Encounter Closed Date Diagnosis/Indication Diagnosis SNOMED-CT Code Diagnosis ICD10 Code Diagnosis Note [id number] OSIRIS BAIN MD NEUROSURG [facility] [address] [place] [address] 03/30/2018 08:10:14 03/31/2018 20:19:33 Neck pain 56586701 M54.2 Low back pain 971719239 M54.5 Health Concerns Section Related Observation LastModified by Organization Detai ls LastModified Time None Recorded Concern Status LastModified by Organization Details LastModified Time None Recorded Advance Directives Directive None Recorded Payers Insurance Date Sequence Insurance Name Policy Number Policy Loza Covered Member ID Loza Member ID Guarantor Name 06/04/2020 1 [employer] (MEDICARE REPLACEMENT/ ADVANTAGE - PPO) Jolene Obrien [id number] Jolene Obrien Notes Date Note Type Note Provider Name and Address Organization Details Recorded Time 03/30/2018 text/html Mrs. Obrien is a 67-year-old female presenting with multiple issues. She has an MRI of her cervical spine on CD today. She complains of intermittent right facial numbness for the past several months. This is been steady and not getting substantially worse. She also describes some numbness on the right side of her neck, and left arm. She describes low back pain radiating into her right hip. Overall these pains are tolerable. The back pain is fairly constant, and intermittently worse. She takes [id number]-fgr-[id number] anti-inflammatories with some improvement. The pain is made worse with lifting and carrying things. She describes weakness in her right leg, but no loss of bowel or bladder control. No difficulty with balance. No trouble using her hands. She has not done any conservative management for this. She reports that she also recently had a lumbar MRI, but does not have it with her today. OSIRIS BAIN MD [address] [place], [address], [facility] 03/30/2018 09:50:21 OBGyn Episode No OBEpisode recorded.
[2024-11-25 14:00] VITALS: BP 123/67; PULSE 63; O2SAT 99
--- NOTE | 2024-11-25 14:09 | HMH.EDGENADL ---
Discharge Plan Disposition Patient Disposition: Home, Self-Care Prescriptions Prescriptions: New clindamycin HCl 150 mg capsule 450 mg PO Q8H 5 Days Qty: 45 0RF sulfamethoxazole-trimethoprim [Bactrim DS] 800-160 mg tablet 1 tab PO BID 5 Days Qty: 10 0RF No Action calcium carbonate 600 mg calcium (1,500 mg) tablet 600 mg PO BID pantoprazole 40 mg tablet,delayed release (DR/EC) 40 mg PO DAILY simvastatin 10 mg tablet 10 mg PO QHS naproxen sodium [Aleve] 220 mg capsule 220 mg PO BID PRN cyanocobalamin (vitamin B-12) [B-12 DOTS] 500 mcg tablet 1,000 mcg PO DAILY eujf-expokg-yaxslnxq-D3-C-Mn 500-400-667 mg-mg-unit capsule 1 cap PO BID losartan-hydrochlorothiazide [Hyzaar] 100-25 mg tablet 1 tab PO DAILY Bystolic 5 mg tablet 5 mg PO DAILY potassium chloride 20 mEq tablet extended release 20 meq PO BID celecoxib [Celebrex] 200 mg capsule 200 mg PO BID estradiol 1 mg tablet 1 mg PO DAILY Qty: 90 1RF Rx Instructions: needs an appt. by the end of Jun cyclobenzaprine 10 MG tablet 10 mg PO BIDP PRN (Reason: Muscle Spasm) 30 Days Qty: 90 0RF ibuprofen 600 MG tablet 600 mg PO Q6HP PRN (Reason: Mild Pain) Qty: 30 0RF Referrals Follow up/Referrals: Raj Oneil MD [Primary Care Provider] - See instructions Activity Restrictions/Add. Instructions Additional Instructions/Restrictions: You have significant tissue loss on the dorsal aspect of your left thumb with an exposed tendon but we were able to close the wound primarily but under significant tension. As discussed it is possible given the amount of tension that that local area could become necrotic if the blood supply is cut off but it seems to be okay at the moment. Please keep a close eye on that. Had the sutures removed in 10 days given the need for tensile strength. Continue prophylactic antibiotics return with any spreading redness or pus coming from the wound is still has a significant risk of infection given the fact that it is a dog bite. Additionally please put topical antibiotic ointment on this mainly triple antibiotic ointment or Neosporin daily for the next 7 days. Clinical Impressions Clinical Impression: Laceration of left thumb Instructions Patient Instructions: Animal Bites Print Language Print Language: Romanian Discharge ED Provider: Ninfa Stephens General Adult HPI General Chief complaint: Animal Bite Stated complaint: [id number]-dog bit left thumb Time Seen by Provider: 11/25/24 13:45 Mode of Arrival: Ambulatory Source of Information: Patient Description of Symptoms (Recalled from ER Triage Doc. by RN): pt was bitten by her dog on the left thumb. tendon exposed. pt has full range of motion. History of Present Illness HPI narrative: Patient is a 74-year-old female present today with a left thumb laceration. Was bitten by her own dog. She states she was try to get her dog to sit down next to her and the dog do not want to therefore bite bit her. Dog is otherwise been acting normal is up-to-date on vaccinations and shots. She states she is also up-to-date on vaccinations including tetanus. Related Data Home Medications ?Medication ?Instructions ?Recorded ?Confirmed calcium carbonate 600 mg PO BID 06/26/18 06/26/18 celecoxib 200 mg capsule (Celebrex) 200 mg PO BID 06/26/18 06/26/18 cyanocobalamin (vitamin B-12) 500 1,000 mcg PO DAILY 06/26/18 06/26/18 mcg tablet (B-12 DOTS) glucosamine 500 1 cap PO BID 06/26/18 06/26/18 bt-osbibjcxt-ixnlygfx comp 400 mg-D3 667 unit-C-Mn cap losartan 100 1 tab PO DAILY 06/26/18 06/26/18 mg-hydrochlorothiazide 25 mg tablet (Hyzaar) naproxen sodium 220 mg capsule 220 mg PO BID PRN 06/26/18 06/26/18 (Aleve) nebivolol 5 mg tablet (Bystolic) 5 mg PO DAILY 06/26/18 06/26/18 pantoprazole 40 mg tablet,delayed 40 mg PO DAILY 06/26/18 06/26/18 release potassium chloride 20 mEq 20 meq PO BID 06/26/18 06/26/18 tablet,extended release simvastatin 10 mg tablet 10 mg PO QHS 06/26/18 06/26/18 Previous Rx's ?Medication ?Instructions ?Recorded estradiol 1 mg tablet 1 mg PO DAILY #90 tabs 01/30/20 cyclobenzaprine 10 mg tablet 10 mg PO BIDP PRN Muscle Spasm 30 11/24/20 days #90 tabs ibuprofen 600 mg tablet 600 mg PO Q6HP PRN Mild Pain #30 11/24/20 tabs clindamycin HCl 150 mg capsule 450 mg (3 x 150 mg) PO Q8H 5 days 11/25/24 #45 caps sulfamethoxazole 800 1 tab PO BID 5 days #10 tabs 11/25/24 mg-trimethoprim 160 mg tablet (Bactrim DS) Allergies Allergy/AdvReac Type Severity Reaction Status Date / Time Penicillins Allergy Unknown Verified 11/24/20 16:36 [facility] Disclaimer: The information contained in this section may have been updated after the patient was seen, as this information can be updated by other users. Social History (Updated 07/09/22 @ 18:50 by Natan Ch MD) Smoking Status: Never smoker alcohol intake: never substance use type: denies use current occupational status: unemployed Travel in the last 8 weeks?: None Have you lived/traveled outside US in past 30 days?: No Contact w/someone who lives/traveled outside US past 30 days?: No Exposure to someone with infectious disease in past 14 days?: No Do you have a fever (greater than 100.4 F or 38 C)?: No Have you tested positive for COVID-19?: No Exposed to someone with COVID-19 in past 14 days?: No Do you have a sore throat?: No Do you have a cough?: No Do you have any weakness?: No Do you have any diarrhea?: No Are you experiencing any unusual bleeding?: No Do you have any muscle aches/pain?: No Do you have any abdominal pain?: No Are you experiencing loss of taste or smell?: No Other Medical History Have you received the Pneumonia Vaccine: No ROS Obtained: Yes All systems reviewed & no additional complaints except as documented Physical Exam General General appearance: alert Respiratory Respiratory exam: Present normal lung sounds bilaterally Cardiovascular Cardiovascular exam: Present regular rate Expanded Upper Extremity Exam Left: Hand L/R back image: 1. Laceration 2 cm in width 1 and half centimeters in length exposing extensor tendon but the tendon is intact functionally and visually gaping wound with tissue loss tissue edges do not reapproximate well Neurological Exam Neurological exam: Present alert Medical Decision Making Medical Records Screening: Per USPSTF and CDC recommendations, given the prevalence of disease in our region, it is our hospital?s policy to screen for HIV and viral Hepatitis for all patients aged 18 and over and those with ongoing risk factors. Dayday Inquiry Pt receiving controlled substance: No Vital Signs: 11/25/24 13:18 11/25/24 14:00 Temperature 98.2 F Temperature Source Oral Pulse Rate 63 Pulse Rate [Right] 71 Respiratory Rate 18 Blood Pressure 123/67 Blood Pressure [Right Arm] 150/76 H Blood Pressure Mean [Right Arm] 100 02 Sat by Pulse Oximetry 98 99 Oxygen Delivery Method Room Air Room Air Orders (Tests/Meds): ED MEDICATIONS Discontinued Medications Generic Name Dose Route Start Last Admin Trade Name Freq PRN Reason Stop Dose Admin Clindamycin HCl 450 mg 11/25/24 14:12 11/25/24 14:30 Clindamycin 150mg Capsule PO 11/25/24 14:13 450 mg ONCE ONE Administration Tetanus/Reduced Diphtheria/Acell Pertussis 0.5 ml 11/25/24 14:44 Tet/Diphth/Pert-Adult 0.5ml Syringe IM 11/25/24 14:45 .ONCE ONE Trimethoprim/Sulfamethoxazole 1 each 11/25/24 14:12 11/25/24 14:30 Sulfa/Trimethoprim 1 Tablet PO 11/25/24 14:13 1 each ONCE ONE Administration Medical Decision Narrative: Exam and history as above. Gaping wound with tissue loss with exposed tendon discussed with her possible wound management options including healing by secondary intention versus primary closure but given the fact that there is tendon exposure and this was a dog bite I do feel that closing this primarily was what is best we gave prophylactic antibiotics extensively irrigated I was able to close this but under significant tension. Patient has a penicillin allergy therefore clindamycin and Bactrim were given as alternatives. Will also give 5 days of prophylactic antibiotics wound management and return precautions emphasized. Please see procedure note. Procedures Laceration Laceration 1: Site: thumb Side (If applicable): left Size (cm): 3 Description: linear Depth: simple, single layer Local Anesthetic: lidocaine 1% and with epi Amount of anesthesia used (mL): 5 Pre-repair: wound explored, irrigated extensively, deep structures intact and wound margins revised Skin layer closed with: nylon Size (cm): 3-0 Number of sutures: 5 Critical Care Critical Care Time Critical Care Time: No
[2024-11-25] MEDS: SULFA/TRIMETHOPRIM 1 TABLET 1 EACH PO (14:30)
[2024-11-25] MEDS: CLINDAMYCIN 150MG CAPSULE 450 MG PO (14:30)
[2024-11-25] MEDS: TET/DIPHTH/PERT-ADULT 0.5ML SYRINGE 0.5 ML IM (14:59)
[2024-11-25 15:09] VITALS: BP 138/67; PULSE 73; RESP 20; TEMP 36.8; O2SAT 98
== END 2024-11-25 15:13 | disposition home or self-care (01) ==
PROVIDERS: Emergency Provider Student in an Organized Health Care Education/Training Program; PCP Internal Medicine Adolescent Medicine
DX: S61.052A Open bite of left thumb without damage to nail, initial encounter (principal); W54.0XXA Bitten by dog, initial encounter; Z23 Encounter for immunization
CPT/HCPCS: 13132; 90471; 90715; 99283; J2004

== ENCOUNTER 2025-05-30 08:07 | Outpatient (CLI) | payer MEDICARE, SELFPAY ==
--- OUTSIDE RECORDS SUMMARY | 2024-08-22 05:00 | XMS_ITS ---
Author Organization [facility] Address [address] [place] [address] Care Team Providers Care Precinct Commanding Officer Name Role Phone Raj Oneil Primary Care Provider REASON FOR VISIT 4 month check up Encounters Encounter Location Date Provider Diagnosis [facility] [address] [place], [place] [address] 08/22/2024 Raj Oneil Plan Of Treatment No Information Progress Notes * Jolene OBRIENDOB: (75 yo F)Acc No.[id number]:08/22/2024 Progress Notes Patient: Torito CALDWELL Jolene Blair Provider: Torito Oneil MD :1950 A ge:74 Y S ex:Female Date:08/22/2024 Address:[address] [id number] Subjective: * Chief Complaints: * 1 . 4 month check up. * Medical History: Objective: * Vitals: Assessment: Plan: * Treatment: * * Electronic signature of Varun Oneil MD FAAP on 2025 at 08:11 AM EST Sign off status: Pending * Provider: Torito Oneil MD Date: 0 08/22/2024 Generated for Printi ng/Faxing/eTransmitting on: 1 07/30/2024 08:11 AM EST
--- OUTSIDE RECORDS SUMMARY | 2024-08-29 04:45 | XMS_ITS ---
Author Organization [facility] Address [address] [place] [address] Care Team Providers Care Media Specialist Name Role Phone Raj Oneil Primary Care Provider REASON FOR VISIT 4 mo FU Encounters Encounter Location Date Provider Diagnosis [facility] [address] [place], [place] [address] 08/29/2024 Raj Oneil Plan Of Treatment No Information Progress Notes * Jolene OBRIENDOB: (75 yo F)Acc No.[id number]:08/29/2024 Progress Notes Patient: Torito CALDWELL Jolene Blair Provider: Torito Oneil MD :1950 A ge:74 Y S ex:Female Date:08/29/2024 Address:[address] [id number] Subjective: * Chief Complaints: * 1 . 4 mo FU. * Medical History: Objective: * Vitals: Assessment: Plan: * Treatment: * * Electronic signature of Varun Oneil MD FAAP on 2025 at 08:11 AM EST Sign off status: Pending * Provider: Torito Oneil MD Date: 0 08/29/2024 Generated for Printi ng/Faxing/eTransmitting on: 1 07/30/2024 08:11 AM EST
--- OUTSIDE RECORDS SUMMARY | 2024-10-13 16:30 | XMS_ITS ---
Author Organization [facility] Address [address] [place] [address] Care Team Providers Care Patient Account Liaison Name Role Phone Raj Oneil Primary Care Provider [phone] Migration, Provider Unavailable Unavailable Allergies Allergen (clinical drug ingredient) Drug/Non Drug Allergy documented on EMR Reaction Allergy Type Onset Date Status Penicillin Unknown Drug Allergy Active REASON FOR VISIT Multum To [facility] Conversion Encounter Medications Medication SIG (Take, Route, Frequency, Duration) Notes Start Date End Date Status Estradiol 1 MG 1 tab(s) orally once a day; Duration: 90 days Active Pantoprazole Sodium 40 MG 1 tab(s) orally Twice daily; Duration: 90 days Active POTASSIUM CHLORIDE (UWC-PEVP-WVR M20) 20 MEQ TAKE 1 TABLET TWICE DAILY; Duration: 90 *Please review for potential replacement for e-prescription and drug interaction check* Active hydrOXYzine HCl 25 MG 1 tab(s) orally twice a day; Duration: 3 days 12/07/2022 Active Levocetirizine Dihydrochloride 5 MG 1 tab(s) orally once a day (in the evening); Duration: 90 days Active B-12 1000 MCG 1 tab(s) orally once a day Active Fluticasone Propionate 50 MCG/ACT 1 spray in each nostril once a day prn; Duration: 90 days 10/22/2021 Active DULoxetine HCl 30 MG 1 cap(s) orally daily; Duration: 30 days 09/12/2024 Active Calcium-Vitamin D 600 MG-125 UNITS 1 TAB ORALLY TWICE A DAY *Please review and pick correct strength-formulati on from [facility] options. If intended option is not shown, discontinue and re-order from Quick Search* Active GLUCOSAMINE AND CHONDROITIN WITH MSM 400 MG-500 MG-250 MG 1 TAB(S) ORALLY BID; Duration: 30 DAY(S) *Please review for potential replacement for e-prescription and drug interaction check* Active Invokana 100 MG TAKE 1 TABLET EVERY DAY; Duration: 90 Active NIFEDIPINE (EQV-PROCARDIA XL) 30 MG TAKE 1 TABLET BY MOUTH ONCE DAILY; Duration: 90 *Please review for potential replacement for e-prescription and drug interaction check* Active Losartan Potassium 25 MG 1 tab(s) orally once a day; Duration: 90 days Active Atorvastatin Calcium 40 MG TAKE 1 TABLET EVERY DAY Active Tylenol 325 MG 2 tab(s) orally every 4 hours prn Active Celecoxib 200 MG 1 cap(s) orally once a day; Duration: 90 days Active Bisoprolol Fumarate 10 MG 1/2 tab orally once a day; Duration: 90 days Active Encounters Encounter Location Date Provider Diagnosis [facility] [address] [facility] [address] [place] [address] 10/13/2024 Provider Migration Generalized anxiety disorder F41.1 Assessments Encounter Date Diagnosis (ICD Code) Assessment Notes Treatment Notes Treatment Clinical Notes Section Notes 10/13/2024 Generalized anxiety disorder (ICD-10 - F41.1) Plan Of Treatment Medication Medication Name Sig Start Date Stop Date Notes DULoxetine HCl 30 MG 1 cap(s) orally yvette ly; Duration: 30 days 09/12/2024 Progress Notes * Jolene OBRIENDOB: (75 yo F)Acc No.[id number]:10/13/2024 Patient: Torito CALDWELLKallieyn Rossy Provider: Sabina zavaleta Migration :1950 A ge:74 Y S ex:Female Date:10/13/2024 [id number] Pcp:Raj Oneil Subjective: * Chief Complaints: * [facility] * Medical History: * Medications: T aking Losartan Potassium 25 MG Tablet 1 tab(s) orally once a day , Taking Atorvastatin Calcium 40 MG Tablet TAKE 1 TABLET EVERY DAY , Taking Tylenol 325 MG Tablet 2 tab(s) orally every 4 hours , Notes to Pharmacist: prn, Taking Calcium-Vitamin D 600 MG-125 UNITS TABLET 1 TAB ORALLY TWICE A DAY , Notes to Pharmacist: *Please review and pick correct strength-formulation from [facility] options. If intended option is not shown, discontinue and re-order from Quick Search*, Taking GLUCOSAMINE AND CHONDROITIN WITH MSM 400 MG-500 MG-250 MG TABLET 1 TAB(S) ORALLY BID , Notes to Pharmacist: *Please review for potential replacement for e-prescription and drug interaction check*, Taking B-12 1000 MCG Tablet 1 tab(s) orally once a day , Taking Fluticasone Propionate 50 MCG/ACT Suspension 1 spray in each nostril once a day prn , Taking hydrOXYzine HCl 25 MG Tablet 1 tab(s) orally twice a day , Taking Levocetirizine Dihydrochloride 5 MG Tablet 1 tab(s) orally once a day (in the evening) , Taking Estradiol 1 MG Tablet 1 tab(s) orally once a day , Taking Pantoprazole Sodium 40 MG Tablet Delayed Release 1 tab(s) orally Twice daily , Taking POTASSIUM CHLORIDE (QXO-SWVJ-XLN M20) 20 MEQ TABLET, EXTENDED RELEASE TAKE 1 TABLET TWICE DAILY , Notes to Pharmacist: *Please review for potential replacement for e-prescription and drug interaction check*, Taking Bisoprolol Fumarate 10 MG Tablet 1/2 tab orally once a day , Taking Celecoxib 200 MG Capsule 1 cap(s) orally once a day , Taking Invokana 100 MG Tablet TAKE 1 TABLET EVERY DAY , Taking NIFEDIPINE (EQV-PROCARDIA XL) 30 MG TABLET, EXTENDED RELEASE TAKE 1 TABLET BY MOUTH ONCE DAILY , Notes to Pharmacist: *Please review for potential replacement for e-prescription and drug interaction check* * Allergies: P enicillin. Objective: * Vitals: Assessment: * Assessment: 1. G eneralized anxiety disorder - F41.1 Plan: * Treatment: * * Electronic signature of Annel fragoso Migration on 2025 at 08:10 AM EST Sign off status: Pending * Provider: Sabina zavaleta Migration Date: 0 10/13/2024 Generated for Omid watson/Christy/Gabriella on: 07/30/2024 08:10 AM EST
--- OUTSIDE RECORDS SUMMARY | 2025-04-24 06:45 | XMS_ITS ---
Author Organization [facility] PE D MELINA Address [address] [place] [address] Care Team Providers Care Shorer Name Role Phone Raj Oneil Primary Care Provider Allergies Allergen (clinical drug ingredient) Drug/Non Drug Allergy documented on EMR Reaction Allergy Type Onset Date Status Penicillin Unknown Drug Allergy Active REASON FOR VISIT 3 mo FU, AWV-non fasting, flu shot Medications Medication SIG (Take, Route, Frequency, Duration) Notes Start Date End Date Status Calcium-Vitamin D 600 MG-125 UNITS 1 TAB ORALLY TWICE A DAY Active Tylenol 325 MG 2 tab(s) orally ever y 4 hours prn Active Losartan Potassium 25 MG TAKE 1 TABLET E VERY DAY; Duration: 90 Active NIFEdipine ER Osmotic Releas e 30 MG TAKE 1 TABLET EVERY DAY; Duration: 90 Active Celecoxib 200 MG 1 cap(s) orally once a day; Duration: 90 days Active Pantoprazole Sodium 40 MG 1 tab(s) orall y Twice daily; Duration: 90 days Active Levocetirizine Dihydrochloride 5 MG 1 tab(s) orally once a day (in the evening); Duration: 90 days Active Bisoprolol Fumarate 10 MG 1/2 tab orally once a day; Duration: 90 days Active Jardiance 25 MG 1 tablet Orally Once a day; Duration: 30 days 10/23/2024 Active Estradiol 1 MG TAKE 1 TABLET EVERY DAY; Duration: 90 days Active Atorvastatin Calcium 40 MG TAKE 1 TABLET EVERY DAY Active DULoxetine HCl 30 MG 1 cap(s) orally yvette ly; Duration: 30 days 09/12/2024 Active POTASSIUM CHLORIDE (AKY-YYLM-ARQ M20) 20 MEQ TAKE 1 TABLET TWICE DAILY; Duration: 90 Active hydrOXYzine HCl 25 MG 1 tab(s) orally tw ice a day; Duration: 3 days 12/07/2022 Active Fluticasone Propionate 50 MCG/ACT 1 spray in each nostril once a day prn; Duration: 90 days 10/22/2021 Active B-12 1000 MCG 1 tab(s) orally once a day Active GLUCOSAMINE AND CHONDROITIN WITH MSM 400 MG-500 MG-250 MG 1 TAB(S) ORALLY BID; Duration: 30 DAY(S) Active Immunizations Vaccine Route Administration Date Status Comme nts Fluzone High Dose IM Intramuscular 04/24/2025 Administered Vital Signs Temperature 97.6 degrees Fahrenheit 04/24/20 25 Blood pressure systolic 120 mm Hg 04/24/20 25 Blood pressure diastolic 58 mm Hg 025 Heart Rate 78 /min 04/24/2025 Height 65.5 in 04/24/2025 Weight 141.2 lbs 04/24/2025 BMI 23.14 kg/m2 04/24/2025 Encounters Encounter Location Date Provider Diagnosis [facility] PED [facility] [address] [facility] [address] [place] [address] 04/24/2025 Raj Oneil Hypertension, essent ial I10 ; Stage 3 chronic kidney disease, unspecified whether stage 3a or 3b CKD N18.30 ; Hyperthyroidism E05.90 ; Immunization(s) administered Z23 and Annual wellness visit Z00.00 Assessments Encounter Date Diagnosis (ICD Code) Assessment Notes Treatment Notes Treatment Clinical Notes Section Notes 04/24/2025 Hypertension, essential (ICD-10 - I10) Blood pressure under good control. No changes in plans. Reassured patient that her diastolic pressure was fine r 04/24/2025 Stage 3 chronic kidney disease, unspecified whether stage 3a or 3b CKD (ICD-10 - N18.30) Kidney function has been stable. Will not draw labs today, follow-up in 3 months r 04/24/2025 Hyperthyroidism (ICD-10 - E05.90) Clinically euthyroid, stable doses levothyroxine replacement therapy r 04/24/2025 Immunization(s) administered (ICD-10 - Z23) r 04/24/2025 Annual wellness visit (ICD-10 - Z00.00) pt stable at this time. Taking meds as prescribed. Does not need any health maintence tests right now. Follow-up in 3 months for labs. mammogram scheduled for end of year. Discussed colonoscopy with patient but patient does not want to proceed. up to date on all vaccines. Non smoker, not a fall risk. Follow-up in 3 months r Plan Of Treatment Treatment Notes Assessment Notes Hypertension, essential Blood pressure u nder good control. No changes in plans. Reassured patient that her diastolic pressure was fine Stage 3 chronic kidney disea se, unspecified whether stage 3a or 3b CKD Kidney function has been stable. Will no t draw labs today, follow-up in 3 months Hyperthyroidism Clinically euthyroid , stable doses levothyroxine replacement therapy Annual wellness visit pt stable at this time. Taking meds as prescribed. Does not need any health maintence tests right now. Follow-up in 3 months for labs. mammogram scheduled for end of year. Discussed colonoscopy with patient but patient does not want to proceed. up to date on all vaccines. Non smoker, not a fall risk. Follow-up in 3 months Next Appt Details Follow Up: prn, Reason: Progress Notes * Jolene OBRIENDOB: (74 yo F)Acc No.[id number]:04/24/2025 Progress notes Patient: Torito Jolene CALDWELL Provider: Torito Oneil MD :1950 A ge:74 Y S ex:Female Date:04/24/2025 Address:[address] [place] [address] [id number] Subjective: * Chief Complaints: * 1 . 3 mo FU, AWV-non fasting. 2. Flu shot. * HPI: g en: PT here for wellness visit. Pt lost in September and seems depressed. Pt states she is doing well medically with no concerns. Blood pressure is good at home, slight osteopenia on last DEXA, taking meds for that. Denies recent falls. Pt non- smoker so no need for chest CT, mammogram scheduled for end of year. Last colonoscopy 2014 was normal, discussed with patient about possibly doing another, doesn't seem to keen on it. Denies any abdominal pain, chest pain, or shortness of breath. Wants flu shot. * Medical History: H ypertension, Hypercholestrolemia, Hormone replacement therapy, Vitamin B12 deficiency , Normal colonoscopy fall 2014, normal DEXA scan 10/27 -repeat 09/28 with significant osteopenia-treatment advised - repeat 11/01 with better results, only mild osteopenia, Normal mammogram 10/27 and 10/28 and 01/28 and 04/01 and 05/02 and 06/03. * Surgical History: T otal hysterectomy 1996, Bladder tack x 2 , Gall Bladder removal . * Hospitalization/Major Diagno stic Procedure: T otal hysterectomy . * Family History: F ather: . M other: . P aternal Grand Father: . P aternal Grand Mother: . M aternal Grand Father: . M aternal Grand Mother: . Paternal uncle: . M aternal uncle: alive. M aternal aunt: alive. S iblings: alive, dementia. C hildren: alive. 1 brother(s) , 3 sister(s) - healthy. 1 daughter(s) - healthy. . * Social History: S moking A re you a:: nonsmoker. R ecreational drug use: no. Exercise: yes. Home smoke detector use: yes. Caffeine: yes, frequency:1-2 coffee daily. Living Will: Yes. Alcohol: no. Sexually active: no. Travel outside [place]: no. 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 * Medications: T aking Tylenol 325 MG Tablet 2 tab(s) orally every 4 hours , Notes to Pharmacist: prn, Taking Calcium-Vitamin D 600 MG-125 UNITS TABLET 1 TAB ORALLY TWICE A DAY , Taking GLUCOSAMINE AND CHONDROITIN WITH MSM 400 MG-500 MG-250 MG TABLET 1 TAB(S) ORALLY BID , Taking B-12 1000 MCG Tablet 1 tab(s) orally once a day , Taking Fluticasone Propionate 50 MCG/ACT Suspension 1 spray in each nostril once a day prn , Taking hydrOXYzine HCl 25 MG Tablet 1 tab(s) orally twice a day , Taking POTASSIUM CHLORIDE (UWI-VESW-LXR M20) 20 MEQ TABLET, EXTENDED RELEASE TAKE 1 TABLET TWICE DAILY , Taking DULoxetine HCl 30 MG Capsule Delayed Release Particles 1 cap(s) orally daily , Taking Atorvastatin Calcium 40 MG Tablet TAKE 1 TABLET EVERY DAY , Taking Jardiance 25 MG Tablet 1 tablet Orally Once a day , Taking Bisoprolol Fumarate 10 MG Tablet 1/2 tab orally once a day , Taking Levocetirizine Dihydrochloride 5 MG Tablet 1 tab(s) orally once a day (in the evening) , Taking Pantoprazole Sodium 40 MG Tablet Delayed Release 1 tab(s) orally Twice daily , Taking Estradiol 1 MG Tablet TAKE 1 TABLET EVERY DAY , Taking Celecoxib 200 MG Capsule 1 cap(s) orally once a day , Taking NIFEdipine ER Osmotic Release 30 MG Tablet Extended Release 24 Hour TAKE 1 TABLET EVERY DAY , Taking Losartan Potassium 25 MG Tablet TAKE 1 TABLET EVERY DAY , Medication List reviewed and reconciled with the patient * Allergies: P enicillin. Objective: * Vitals: N urse: jl, Pain: 0, Temp: 97.6, RR: 18, HR: 78, BP: 120/58, Ht: 65.5 , Wt: 141.2, BMI:23.14. * Examination: G eneral Examination: General P leasant and Cooperative, NAD on RA,. Heart: R egular Rate and Rhythm, no murmur, rubs or gallops. HEENT: p harynx and tonsils normal, TM's normal. Lungs: L CTAB, No wheezes, crackles or rhonchi, Good air movement,. Abdomen: S oft, NTND, BSNA, No organomegaly or peritoneal signs.. Assessment: * Assessment: 1. H ypertension, essential - I10 (Primary) 2 . S tage 3 chronic kidney disease, unspecified whether stage 3a or 3b CKD - N18.30 3 . H yperthyroidism - E05.90 4 . I mmunization(s) administered - Z23 5 . A nnual wellness visit - Z00.00 r Plan: * Treatment: 2. S tage 3 chronic kidney disease, unspecified whether stage 3a or 3b CKD Notes: Kidney function has been stable. Will not draw labs today, follow-up in 3 months 3. H yperthyroidism Notes: Clinically euthyroid, stable doses levothyroxine replacement therapy 4. A nnual wellness visit Notes: pt stable at this time. Taking meds as prescribed. Does not need any health maintence tests right now. Follow-up in 3 months for labs. mammogram scheduled for end of year. Discussed colonoscopy with patient but patient does not want to proceed. up to date on all vaccines. Non smoker, not a fall risk. Follow-up in 3 months * Immunizations: Fluzone High Dose : 0.5 mL (Dose No:1) (Route: Intramuscular) given by CLAY Delgado on Left Deltoid (Immunization(s) administered) * Procedure Codes: 9 0662 Influenza High Dose Vaccine >65 Years Old, G0008 ADMINISTRATION-FLU VACCINE MEDICARE ONLY * Follow Up: p rn * * Sign off status: Completed true * Provider: Torito Oneil MD Date: Generated for Omid watson/Christy/Gabriella on: 07/30/2024 08:11 AM EST History and Physical Notes * HPI (History of Present Illness) Category Sub-Category Detail Notes Category Not es gen PT here for wel ess visit. Pt lost in September and seems depressed. Pt states she is doing well medically with no concerns. Blood pressure is good at home, slight osteopenia on last DEXA, taking meds for that. Denies recent falls. Pt non-smoker so no need for chest CT, mammogram scheduled for end of year. Last colonoscopy 2014 was normal, discussed with patient about possibly doing another, doesn't seem to keen on it. Denies any abdominal pain, chest pain, or shortness of breath. Wants flu shot Examination Category Sub-Category Detail Notes Category Not es General Examination HEENT: pharynx and tonsils normal, TM's normal Heart: Regular Rate and Rhy thm, no murmur, rubs or gallops Lungs: LCTAB, No wheezes, c rackles or rhonchi, Good air movement, Abdomen: Soft, NTND, BSNA, No organomegaly or peritoneal signs. General Pleasant and Coopera tive, NAD on RA,
--- OUTSIDE RECORDS SUMMARY | 2025-05-13 05:18 | XMS_ITS ---
Author Organization [facility] PE D MELINA Address [address] [place] [address] Care Team Providers Care Pressure Supervisor Name Role Phone Raj Oneil Primary Care Provider REASON FOR VISIT mammogram order Encounters Encounter Location Date Provider Diagnosis [facility] [address] [place] [address] 05/13/2025 Raj Besimer Breast cancer screening by mammogram Z12.31 Assessments Encounter Date Diagnosis (ICD Code) Assessment Notes Treatment Notes Treatment Clinical Notes Section Notes 05/13/2025 Breast cancer screening by mammogram (ICD-10 - Z12.31) Plan Of Treatment Pending Test Test Name Order Date Mammogram : Bilateral 05/13/2025 Progress Notes * Jolene OBRIENDOB: (74 yo F)Acc No.[id number]:05/13/2025 Patient: Jolene ESPINOZA Rossy :1950 A ge:74 Y S ex:Female Address:[place] [address] Subjective: * Chief Complaints: * M ammogram order * Medical History: * Surgical History: * Hospitalization/Major Diagno stic Procedure: * Medications: Objective: * Vitals: * Physical Examination: Assessment: * Assessment: 1. B reast cancer screening by mammogram - Z12.31 Plan: * Treatment: * Procedure Codes: * true * Date: Generated for Printi ng/Faxing/eTransmitting on: 07/30/2024 08:11 AM EST
--- OUTSIDE RECORDS SUMMARY | 2025-05-30 08:11 | XMS_ITS | Data Portability ---
Author Organization [facility] Person [facility] Address [address] [facility] [place] [address] Care Team Providers Care Turkey Pinner Name Role Phone CHANDNI SANABRIA Primary Care Provider Assessment Encounter Date Assessment Date Assessment LastModified [...] bendi ng only [facility] [address] [place] [address] Rene t Name: MANUEL Grayson STEPJOSE ANGEL NS Rene villanueva : 1949 Patialine t 01 Orderi [...] Yrn Douglass MD on 018 1:46 PM [facility] Radiology [facility] [address] [place], [address], 04/17/2018 09:47:47 03/31/20 18 12/29/2017 MRI, cervi marjan spine , w/o contr ast No observ ation record ed. ewiner Not Available 2017 13:56:10 04/24/20 18 04/21/2018 MRI, lumba r spine , w/o contr ast No observ ation record ed. [facility] [address], [place], [address], 05/19/2018 10:28:55 04/24/20 18 04/21/2018 MRI, lumba r spine , w/o contr ast No observ ation record ed. [facility] [address] [place] [address] [address] [place], [id number], 05/19/2018 10:28:55 Result Notes Documentation Provider Name and Address Organization Details Recorded Time Xr, Lumbosacral Spine, 2 Or 3 View, Bending Only : [facility] [address] [place] [address] Patient Name: JORGE OBRIEN Patient : 1950 Patient Ordering Provider: OSIRIS BAIN EXAM DATE: 03/30/2018 EXAM: XR LUMBAR SPINE FLEX/EXT ONLY CLINICAL INFORMATION: Back pain. IMAGES PROVIDED: Lateral views of the lumbar spine in flexion and extension. COMPARISON: None. FINDINGS: Vertebral body heights are normal. L3-S1 disc space reduction is seen with anterior and lateral osteophytes. There is grade 1 anterolisthesis of L3 over L4. It measures 9 mm in flexion and 7 mm in extension. Degenerative changes are seen in the facet joints. No radiographic evidence of injury is noted. IMPRESSION: Degenerative changes of the lumbar spine. Mild instability at L3-L4 level. Interpreted By: Elvis Douglass MD Robert Kahn [facility] 04/17/2018 09:47:47 Procedures Surgical History Date Name Laterality Status Provider Name and Address Organization Details Recorded Time Other completed Lilly Yanick [facility] 03/30/2018 09:34:28 Other completed [facility] 03/30/2018 09:34:46 Cholecystectomy completed [facility] 03/30/2018 09:34:57 Imaging Results None recorded. Procedure Notes None recorded. Medical Equipment None [...] Body mass index (BMI) Body weight Systolic And Diastolic Provider Name and Address Organization Details Last Updated DateTime 03/30/2018 190.5 cm 26.2 kg/m2 13694.4 g 126/82 mm[Hg] Lilly Yanick [facility] 03/30/2018 09:36:15 Social History Question Answer Notes LastModified by Organizat ion Details LastModified Time Tobacco Smoking Status Never Smoker Lilly Yanick [facility] 03/30/2018 09:30:58 What Was The Date Of [...] Diagnosis SNOMED-CT Code Diagnosis ICD10 Code Diagnosis IMO Codes Diagnosis Note [id number] OSIRIS BAIN MD [facility] [address] [place] [address] 03/30/2018 08:10:14 03/31/2018 20:19:33 Neck pain 96070224 M54.2 Low back pain [id number] M54.5 Health Concerns Section Related Observation LastModified by Organization Detai ls LastModified Time None Recorded Concern Status LastModified by Organization Details LastModified Time None Recorded Advance Directives Directive None Recorded Payers Insurance Date Sequence Insurance Name Policy Number Policy Loza Covered Member ID Loza Member ID Guarantor Name 06/04/2020 1 [employer] (MEDICARE REPLACEMENT/ ADVANTAGE - PPO) Jorge Obrien [id number] Jorge Obrien Notes Date Note Type Note Provider [...] fairly constant, and intermittently worse. She takes [id number] anti-inflammatories with some improvement. The pain is [...] with her today. OSIRIS BAIN MD [address] [place], [address], [place] [facility] 03/30/2018 09:50:21 OBGyn Episode No OBEpisode recorded.
--- NOTE | 2025-05-30 08:12 | MM_ITS ---
PROCEDURE INFORMATION: Exam: MG Bilateral Screening 3D Mammography Exam date and time: 05/30/2025 8:21 AM Age: 75 years old Clinical indication: Screening examination TECHNIQUE: Imaging protocol: Bilateral Screening tomosynthesis and 2D mammography including computer-aided detection (CAD) when performed. COMPARISON: 1. MG MM DIG SCREENING MAMM BI W/CAD 05/17/2024 10:11 AM 2. MG MM DIG SCREENING MAMM BI W/CAD 05/16/2023 7:55 AM FINDINGS: MAMMOGRAPHY: Breast composition: There are scattered areas of fibroglandular density. Mass: No suspicious masses. Architectural distortion: Postsurgical changes redemonstrated right breast. Calcifications: No suspicious calcifications. Asymmetric density: None. Skin thickening: None. Axillary adenopathy: None. IMPRESSION: No mammographic evidence of malignancy. Annual screening is recommended unless otherwise clinically indicated. ASSESSMENT: BI-RADS Category 2: Benign.
== END 2025-05-30 23:59 | disposition home or self-care (01) ==
LOC: RAD 08:08
PROVIDERS: PCP Internal Medicine Adolescent Medicine; Visit Provider Internal Medicine Adolescent Medicine
DX: Z12.31 Encounter for screening mammogram for malignant neoplasm of breast (principal); R92.323 Mammographic fibroglandular density, bilateral breasts; Z98.890 Other specified postprocedural states
CPT/HCPCS: 77063; 77067